=== PATIENT | female | born 1970 | race Caucasian/White ===

== ENCOUNTER 2017-11-16 18:37 | Emergency (ER) | payer BC ==
[2017-11-16] MEDS ORDERED: Adacel (T-DAP) 0.5 ML VIAL ONE ×2 (19:14→19:15)
--- NOTE | 2017-11-16 19:18 | RAD ---
RIGHT HAND THREE VIEWS: 11/16/2017 HISTORY: Injury to right hand. The patient reports right middle finger caught in attic fan. FINDINGS: No acute fracture or dislocation is seen involving the right hand. There is a lucency seen within th e distal pole of the scaphoid bone, which may represent subchondral cystic change. A corticated osse ous density is seen adjacent to the ulnar styloid process, which may be related to either an accessor y center of ossification versus a remote avulsion injury. IMPRESSION: No acute osseous abnormality, right hand. POS: DUONG
[2017-11-16] MEDS ORDERED: Lidocaine 1% PF 5 ML VIAL ONE (19:32)
[2017-11-16] MEDS ORDERED: Ketorolac Tromethamine 30 MG/ML VIAL ONE (19:41)
== END 2017-11-16 20:30 | disposition home or self-care (01) ==
LOC: ERS 18:37
DX: S61.212A Laceration without foreign body of right middle finger without damage to nail, initial encounter (principal); W45.8XXA Other foreign body or object entering through skin, initial encounter
CPT/HCPCS: 12001; 90471; 90715; 96372; J1885; J2001

== ENCOUNTER 2018-12-31 00:01 | Emergency (ER) | payer BC ==
[2018-12-31 00:49] LABS: #Eosinphils 0.1 thou/uL (0.0-0.7); #Lymphocytes 1.4 thou/uL (1.20-3.40); #Monocytes 0.9 thou/uL (0.11-0.59); #Neutrophils 10.2 thou/uL (1.40-6.50); %Basophils 0.2 % (0.0-1.0); %Eosinophils 0.9 % (0.0-10.0); %Monocytes 6.8 % (0.0-10.0); %Neutrophils 81.1 % (42.0-75.0); Hemoglobin 13.2 g/dL (12.0-16.0); Mean Corpuscular HGB CONC 33.6 g/dL (32.0-36.0); Mean Corpuscular Hemoglobin 29.9 pg (27.0-31.0); Mean Corpuscular Volume 89.1 fL (78.0-98.0); Mean Platelet Volume 7.5 fL (7.4-10.4); Platelet Count 329 thou/uL (130-400); RBC Distribution Width 11.3 % (11.5-14.5); Red Blood Cell (RBC) Count 4.42 mill/uL (4.20-5.40); White Blood Cell (WBC) Count 12.5 thou/uL (4.8-10.8)
[2018-12-31] MEDS ORDERED: Ketorolac Tromethamine 30 MG/ML VIAL ONE (00:55)
[2018-12-31] MEDS ORDERED: Ondansetron PF 4 MG/2 ML Vial ONE (00:55)
[2018-12-31 01:30] LABS: Albumin 4.2 g/dL (3.5-5.0)
[2018-12-31 01:31] LABS: Chloride 104 mmol/L (98-107); Sodium 139 mmol/L (136-145)
[2018-12-31 01:32] LABS: Calcium 9.5 mg/dL (7.8-10.44); Glucose 136 mg/dL (70-105)
[2018-12-31 01:33] LABS: Globulin 2.9 g/dL (2.4-3.5); Protein, Total 7.1 g/dL (6.0-8.3)
[2018-12-31 01:34] LABS: Anion Gap 17 mmol/L (10-20); Bilirubin, Total 0.4 mg/dL (0.2-1.2); Carbon Dioxide 22 mmol/L (22-29)
[2018-12-31 01:35] LABS: Alkaline Phosphatase 74 U/L (40-150)
[2018-12-31 01:36] LABS: Calc. Creatinine Clearance 0 mL/min (70-130); Estimated GFR-MDRD 69
[2018-12-31 01:37] LABS: BUN (Urea Nitrogen) 13 mg/dL (7.0-18.7)
[2018-12-31 01:38] LABS: ALT (SGPT) 44 U/L (8-55); AST (SGOT) 39 U/L (5-34)
--- NOTE | 2018-12-31 07:54 | CT ---
PRELIMINARY REPORT/[facility]/EMERGENCY AFTER HOURS PROCEDURE: EXAM: CT Head Without Contrast EXAM DATE/TIME: 12/31/2018 12:53 AM CLINICAL HISTORY: 48 years old, female; Injury or trauma; Initial encounter; Blunt trauma (contusions or hematomas); Giacomo diamond HX: 48 y/o F presents to ED S/P fall. PT, who recently injured her leg from a mechanical fall, states that she is wearing a leg brace that caused her to fall tonight while in her bathroom. On fall , she hit her head on the toilet, which she describes as her last memory. No lightheadedness or dizzi ness prior to fall TECHNIQUE: Imaging protocol: Computed tomography of the head without contrast. COMPARISON: No relevant prior studies available. FINDINGS: Brain: Normal. Ventricles: Normal. Bones/joints: Normal. Sinuses: Normal as visualized. Mastoid air cells: Normal as visualized. Soft tissues: Unremarkable. IMPRESSION: No acute intracranial abnormality. Thank you for allowing us to participate in the care of your patient. Dictated and Authenticated by: Chip Onofre MD 12/31/2018 1:21 AM Central Time ([place] & [place]) FINAL REPORT CT BRAIN WITHOUT CONTRAST: Final report is in agreement with the above-provided preliminary interpretation. No acute intracranial hemorrhage or mass effect.
--- NOTE | 2018-12-31 08:13 | RAD ---
FRONTAL VIEW CHEST: COMPARISON: 09/06/2010. INDICATION: Syncope. FINDINGS: There is no evidence of consolidation, effusion, or pneumothorax. Cardiac silhouette is normal in si ze. IMPRESSION: No focal consolidation. POS: C
== END 2018-12-31 02:23 | disposition home or self-care (01) ==
LOC: ERS 00:01
DX: S01.81XA Laceration without foreign body of other part of head, initial encounter (principal); S70.01XA Contusion of right hip, initial encounter; W18.30XA Fall on same level, unspecified, initial encounter
CPT/HCPCS: 12011; 36415; 70450; 71045; 80053; 83735; 84484; 85025; 93005; 96361; 96374; 96375; J1885; J2405

== ENCOUNTER 2019-01-31 06:51 | Outpatient (CLI) | payer BC ==
[2019-01-31 11:36] LABS: #Basophils 0.1 thou/uL (0.0-0.2); #Eosinphils 0.4 thou/uL (0.0-0.7); #Lymphocytes 2.2 thou/uL (1.20-3.40); #Monocytes 0.9 thou/uL (0.11-0.59); #Neutrophils 8.2 thou/uL (1.40-6.50); %Basophils 0.5 % (0.0-1.0); %Lymphocytes 18.8 % (21.0-51.0); %Monocytes 7.3 % (0.0-10.0); %Neutrophils 70.4 % (42.0-75.0); Hemoglobin 14.1 g/dL (12.0-16.0); Mean Corpuscular Hemoglobin 29.9 pg (27.0-31.0); Mean Corpuscular Volume 88.1 fL (78.0-98.0); Mean Platelet Volume 7.7 fL (7.4-10.4); Platelet Count 308 thou/uL (130-400); RBC Distribution Width 11.4 % (11.5-14.5); Red Blood Cell (RBC) Count 4.73 mill/uL (4.20-5.40); White Blood Cell (WBC) Count 11.7 thou/uL (4.8-10.8)
[2019-01-31 11:44] LABS: Anion Gap 13 mmol/L (10-20); BUN (Urea Nitrogen) 14 mg/dL (7.0-18.7); Calc. Creatinine Clearance 0 mL/min (70-130); Calcium 9.6 mg/dL (7.8-10.44); Carbon Dioxide 25 mmol/L (22-29); Chloride 103 mmol/L (98-107); Estimated GFR-MDRD 77; Glucose 119 mg/dL (70-105); Potassium 4.6 mmol/L (3.5-5.1); Sodium 136 mmol/L (136-145)
--- NOTE | 2019-02-02 19:47 | EKG ---
Test Reason : Blood Pressure : / mmHG Vent. Rate : 078 BPM Atrial Rate : 078 BPM P-R Int : 148 ms QRS Dur : 076 ms QT Int : 372 ms P-R-T Axes : 061 043 064 degrees QTc Int : 424 ms Poor data quality, interpretation may be adversely affected Normal sinus rhythm Normal ECG When compared with ECG of 31-DEC-2018 00:47, No significant change was found Confirmed by MELISSA BALDWIN, . SDayron ([id number]) on 02/02/2019 7:47:01 PM Referred By: IERO Confirmed By:DR. Michelle TORRES MD
== END 2019-01-31 06:52 | disposition home or self-care (01) ==
LOC: LABBT 06:51
PROVIDERS: ATTEND Orthopaedic Surgery
DX: Z01.818 Encounter for other preprocedural examination (principal); S83.511A Sprain of anterior cruciate ligament of right knee, initial encounter
CPT/HCPCS: 80048; 85025; 93005; 93010

== ENCOUNTER 2019-02-02 05:51 | Observation (INO) | payer BC ==
[2019-01-31 10:32] VITALS: BMI 29.7
[2019-02-02] MEDS ORDERED: diphenhydrAMINE 50 MG/ML VIAL ONE ×2 (06:35→11:34)
[2019-02-02] MEDS ORDERED: Scopolamine 1.5 mg/72 hour Patch ONE (06:35)
[2019-02-02] MEDS ORDERED: Midazolam HCl 2 mg/2 ml Vial ONE (06:36)
[2019-02-02] MEDS ORDERED: Fentanyl 100 MCG/2 ML VIAL ONE (06:36)
[2019-02-02] MEDS ORDERED: Ondansetron PF 4 MG/2 ML Vial ONE (06:36)
[2019-02-02] MEDS ORDERED: Zolpidem Tartrate 5 MG TAB PO PRN (07:00)
[2019-02-02] MEDS ORDERED: traMADol HCl 50 MG TAB PO PRN ×2 (07:00)
[2019-02-02] MEDS ORDERED: Promethazine HCl 25 MG/ML VIAL IM PRN ×2 (07:00→09:21)
[2019-02-02] MEDS ORDERED: HYDROcodone/Acetaminophen 10/325 mg Tablet PO PRN ×2 (07:00)
[2019-02-02] MEDS ORDERED: Ropivacaine 0.2% 550 ML 550 ML NERVE BLCK SCH (07:00)
[2019-02-02] MEDS ORDERED: Ondansetron PF 4 MG/2 ML Vial IVP PRN (07:00)
[2019-02-02] MEDS ORDERED: Fentanyl 100 MCG/2 ML VIAL IV PRN (07:01)
[2019-02-02] MEDS ORDERED: Promethazine HCl 25 MG/ML VIAL SLOW IVP PRN (09:21)
[2019-02-02] MEDS ORDERED: Ondansetron HCl/PF 4 MG/2 ML Vial IVP PRN (09:21)
[2019-02-02] MEDS ORDERED: Acetaminophen 500 MG TAB PO PRN (10:28)
[2019-02-02] MEDS ORDERED: Milk Of Magnesia 30 ML UDCUP PO PRN (10:28)
[2019-02-02] MEDS ORDERED: Bisacodyl 10 MG SUPP PR PRN (10:28)
[2019-02-02] MEDS ORDERED: Morphine 4 MG/ML VIAL SLOW IVP PRN (10:28)
[2019-02-02] MEDS ORDERED: HYDROcodone/Acetaminophen 7.5/325 mg Tablet PO PRN ×2 (10:28)
[2019-02-02] MEDS ORDERED: diphenhydrAMINE 50 MG CAP PO PRN (10:28)
[2019-02-02] MEDS ORDERED: Morphine 2 MG/ML SYRINGE SLOW IVP PRN (10:28)
[2019-02-02] MEDS ORDERED: Methocarbamol 500 MG TAB PO PRN (10:28)
[2019-02-02] MEDS ORDERED: Ropivacaine 0.2% HCl/PF (40 MG/20 ML VIAL) ONE (10:43)
[2019-02-02] MEDS ORDERED: Bupivacaine HCl 0.5%/Epinephrine 1:200,000/PF 30 ml Vial ONE (10:43)
[2019-02-02] MEDS ORDERED: Ropivacaine 0.5% HCl/PF (150 MG/30 ML VIAL) ONE (10:43)
[2019-02-02] MEDS ORDERED: Dexamethasone 20 MG/5 ML VIAL ONE (11:34)
[2019-02-02] MEDS ORDERED: PROPOFOL 200 MG/20 ML VIAL ONE (11:34)
[2019-02-02] MEDS ORDERED: Ketorolac Tromethamine 30 MG/ML VIAL ONE (11:34)
[2019-02-02] MEDS ORDERED: Lidocaine 1% PF 5 ML VIAL ONE (11:34)
--- NOTE | 2019-02-02 16:03 | OP ---
DATE OF PROCEDURE: 02/02/2019 PREOPERATIVE DIAGNOSIS: Right knee anterior cruciate ligament tear. POSTOPERATIVE DIAGNOSES: 1. Right knee anterior cruciate ligament tear. 2. Loose body greater than 1 cm, which came from the central facet of the patella. PROCEDURES PERFORMED: 1. Right knee exam under anesthesia. 2. Right knee arthroscopy with arthroscopically-assisted anterior cruciate ligament reconstruction using an allograft Achilles tendon. 3. Removal of loose body greater than 1 cm. AIR CONTROL/ANTI AIR WARFARE OFFICER: Brown Blount PA-C ESTIMATED BLOOD LOSS: Minimal. COMPLICATIONS: None. ANESTHESIA: The patient had a general anesthetic as well as a preoperative block. IMPLANTS: Our implants; 7 x 25 metal interference screw on the femur. We used a 9 x 23 Bio[employer]posite interference screw in the tibial canal, backed up by bicortical screw with a soft tissue washer. All of these devices were [employer] devices. DISPOSITION: She did go to recovery room in stable condition. INDICATIONS: This is a 48-year-old female, who is about a month out from her injury and at this time, she opted for surgical repair. DESCRIPTION OF PROCEDURE: After all appropriate consent forms were explained and signed, she was taken back to the operating room and this time was given a general anesthetic. Once the level of anesthesia was appropriate, an exam under anesthesia was performed of the right lower extremity. Exam under anesthesia was done, which confirmed a positive Jus exam. At this time, she was also noted to have a grade 2 opening of her MCL, but was solid at full extension. We then prepped and draped the right lower extremity in standard surgical fashion. The limb was exsanguinated and the tourniquet was taken up to 300 mmHg. Inferolateral portal was established. Scope was placed into the knee. A needle localization technique was then used to make a medial working portal. Diagnostic arthroscopy commenced in the notch. PCL was found to be intact. The ACL was found to be torn. Remnant ACL was removed at this time. Medial compartment was evaluated. The femur and tibial plateau were in good condition. There was a little flounce noted in the medial meniscus posterior horn. This was probed thoroughly and felt to be intact. We took the camera around the backside of the medial meniscus and did fine hemorrhagic area, where the capsule inserted on the meniscus and upon probing, this was also found to be stable. We then turned our attention to the lateral compartment, lateral meniscus, tibial plateau were in good condition. There was an injury, it appeared to be a grade 2 injury, right in the center part of the lateral femoral condyle. This did not require any treatment. The gutters were swept through and as we went up the medial gutter, there was a loose body noted, which was cartilage surrounded by some fibrinous tissue. This was greater than a centimeter and at this time was removed with a grasper. This emanated off the central portion of the patella. There were some unstable chondral flaps around the periphery and this was gently debrided with mechanical shaver leaving all good cartilage alone. There was another small loose body noted and again this was removed as well. Once this was done, we turned our attention to the reconstruction portion of the procedure. We did flex the knee up and through the medial portal, placed a pin up and out the anterolateral thigh. A 10-mm reamer was used to ream our tunnel depth to a depth of 30. All loose bony cartilage debris was removed from the knee joint. We then used a dilator to dilate this tunnel and compact the bone. At this time, we then turned our attention to the tibial side. The guide was set at 55 degrees and placed into the knee joint. A pin was placed up into the knee joint and again the 10 mm reamer was used to ream our tunnel. A dilator was again used to dilate our tibial tunnel. All loose bony cartilaginous debris was removed from the knee joint. Rasp and naren were used to smooth off the edges. At this time, we went dry. The knee was flexed up and the pin was placed up and out the anterolateral thigh one more time. This was used to pull our passing suture up into the knee joint. This was pulled down the tibial tunnel and used for graft up into the knee joint. A 7 x 25 metal interference screw was then used to fixate our femoral plug. We then went out into full extension and we placed a 9 x 23 Bio[employer]posite interference screw up in the tibial tunnel. We then drilled, tapped and placed a bicortical screw with a smooth washer as backup to fixate the tendon just distal to the tunnel. Once this was done, scope was placed back into the knee to make sure that the interference screw was not visible into the knee joint and indeed it was not. Graft was stable and did not impinge going through full flexion and extension, and at this time, the camera was removed, knee was drained and we then cut off our excess graft. We sewed it into the surrounding periosteum. We then used deep Vicryl, 2-0 Vicryl and we used the sutures to close the incisions. Bulky sterile dressing was applied. Tourniquet was let down. Toes pinked up nicely. The patient was awakened, taken to recovery room in stable condition. All counts were correct at the end of the case. She did receive preoperative IV antibiotics. Job ID: [id number]
[2019-02-02] MEDS: Dextrose 5 %-0.45 % NaCl 1,000 ML IV SCH ×2 (16:18→21:00)
[2019-02-02] MEDS: CEFAZOLIN 2 GM in Premix Bag 1 BAG IVPB SCH ×2 (16:19→23:29)
[2019-02-02] MEDS: Ketorolac Tromethamine 30 MG/ML VIAL IVP SCH ×2 (16:19→18:14)
[2019-02-02] MEDS: Famotidine 20 MG TAB PO SCH (21:06)
[2019-02-03] MEDS: Ketorolac Tromethamine 30 MG/ML VIAL IVP SCH ×3 (01:18→12:02)
[2019-02-03] MEDS: Dextrose 5 %-0.45 % NaCl 1,000 ML IV SCH (06:18)
[2019-02-03] MEDS ORDERED: Sodium Chloride 0.9% 10 ML ONE (06:37)
[2019-02-03] MEDS: Famotidine 20 MG TAB PO SCH (08:50)
--- NOTE | 2019-02-03 10:40 | DIS ---
DATE OF ADMISSION: 02/02/2019 DATE OF DISCHARGE: 02/03/2019 ADMISSION DIAGNOSIS: Right knee anterior cruciate ligament traumatic rupture. DISCHARGE DIAGNOSIS: Right knee anterior cruciate ligament traumatic rupture. PROCEDURE PERFORMED: Arthroscopic-assisted right knee allograft anterior cruciate ligament reconstruction. CONSULTANTS: [facility]. BRIEF CLINICAL HISTORY: Sailaja is a 48-year-old white female, who was admitted to [facility], underwent the above elective procedure on date of admission without intra, trey, or postop complication. Her hospital course was unremarkable. At the time of discharge, the patient was afebrile. She is ambulatory in a nonweightbearing fashion with crutches, tolerating regular diet, voiding without difficulty. Her incision is clean and closed, no strike through and she is neurovascularly intact in the right lower extremity. DISCHARGE MEDICATIONS: Include [place] for pain. We will be happy to see the patient on an as-needed basis between now and the patient's next scheduled appointment in 1 to 2 weeks. CONDITION ON DISCHARGE: Stable. PROGNOSIS: Good. Job ID: [id number]
[2019-02-03 12:32] VITALS: BP 118/58; TEMP 98
== END 2019-02-03 12:46 | disposition home or self-care (01) ==
LOC: SDC 05:51 → 3SE 15:45
PROVIDERS: ADMIT Orthopaedic Surgery; ATTEND Orthopaedic Surgery
PROC: 0MSN4ZZ Reposition Right Knee Bursa and Ligament, Percutaneous Endoscopic Approach (ICD-10-PCS; principal; 2019-02-02)
PROC: 3E0T3BZ Introduction of Anesthetic Agent into Peripheral Nerves and Plexi, Percutaneous Approach (ICD-10-PCS; 2019-02-03)
PROC: 3E0T3BZ Introduction of Anesthetic Agent into Peripheral Nerves and Plexi, Percutaneous Approach (ICD-10-PCS; 2019-02-03)
DX: S83.511A Sprain of anterior cruciate ligament of right knee, initial encounter (principal); J30.2 Other seasonal allergic rhinitis; G89.18 Other acute postprocedural pain; W01.0XXA Fall on same level from slipping, tripping and stumbling without subsequent striking against object, initial encounter; Y92.71 Barn as the place of occurrence of the external cause
CPT/HCPCS: 96372; 96374; 96375; 96376; A4306; C1713; G0378; J0670; J0690; J1100; J1200; J1885; J2001; J2250; J2405; J2550; J2704; J2795; J3010; J3370; Q0163

== ENCOUNTER 2021-06-05 10:19 | Day surgery (SDC) | payer BC ==
[2021-06-04 10:48] VITALS: BMI 28.1
[2021-06-05] MEDS ORDERED: Fentanyl 100 MCG/2 ML VIAL ONE ×2 (11:09→12:22)
[2021-06-05] MEDS ORDERED: Midazolam HCl 2 mg/2 ml Vial ONE (11:09)
[2021-06-05] MEDS ORDERED: ceFAZolin 2 GM/Dextrose 50 ML IVPB ONE (12:18)
[2021-06-05] MEDS ORDERED: Ondansetron PF 4 MG/2 ML Vial IVP PRN (12:30)
[2021-06-05] MEDS ORDERED: HYDROcodone/Acetaminophen 5/325 mg Tablet PO PRN ×2 (12:30)
[2021-06-05] MEDS ORDERED: Zolpidem Tartrate 5 MG TAB PO PRN (12:30)
[2021-06-05] MEDS ORDERED: Ropivacaine 0.2% 550 ML 550 ML NERVE BLCK SCH (12:30)
[2021-06-05] MEDS ORDERED: Ketorolac Tromethamine 30 MG/ML VIAL IVP PRN (12:30)
[2021-06-05] MEDS ORDERED: Promethazine HCl 25 MG/ML VIAL IM PRN (12:30)
[2021-06-05] MEDS ORDERED: traMADol HCl 50 MG TAB PO PRN ×2 (12:30)
[2021-06-05] MEDS ORDERED: PROPOFOL 200 MG/20 ML VIAL ONE (12:53)
[2021-06-05] MEDS ORDERED: Ketorolac Tromethamine 30 MG/ML VIAL ONE (12:53)
[2021-06-05] MEDS ORDERED: Dexamethasone 20 MG/5 ML VIAL ONE (12:53)
[2021-06-05] MEDS ORDERED: Lidocaine 1% PF 5 ML VIAL ONE (12:53)
[2021-06-05] MEDS ORDERED: Ondansetron PF 4 MG/2 ML Vial ONE (12:53)
[2021-06-05] MEDS ORDERED: Ropivacaine 0.5% HCl/PF (150 MG/30 ML VIAL) ONE (12:53)
[2021-06-05] MEDS ORDERED: ePHEDrine 50 MG/ML VIAL ONE (12:53)
== END 2021-06-05 16:35 | disposition home or self-care (01) ==
LOC: SDC 10:19
PROVIDERS: ATTEND Orthopaedic Surgery
PROC: 0PSJ04Z Reposition Left Radius with Internal Fixation Device, Open Approach (ICD-10-PCS; principal; 2021-06-05)
PROC: 0PSL04Z Reposition Left Ulna with Internal Fixation Device, Open Approach (ICD-10-PCS; principal; 2021-06-05)
PROC: 3E0T3BZ Introduction of Anesthetic Agent into Peripheral Nerves and Plexi, Percutaneous Approach (ICD-10-PCS; principal; 2021-06-05)
DX: S52.302A Unspecified fracture of shaft of left radius, initial encounter for closed fracture (principal); S52.202A Unspecified fracture of shaft of left ulna, initial encounter for closed fracture; J30.2 Other seasonal allergic rhinitis; Z79.82 Long term (current) use of aspirin; Z79.891 Long term (current) use of opiate analgesic; W00.0XXA Fall on same level due to ice and snow, initial encounter
CPT/HCPCS: 76000; A4306; C1713; C1874; J0690; J1100; J1885; J2250; J2405; J2704; J2795; J3010; J3490

== ENCOUNTER 2021-12-24 13:45 | Outpatient (CLI) | payer BC | END 2021-12-24 13:46 | disposition home or self-care (01) | LOC: MRI 13:45 | PROVIDERS: ATTEND Anesthesiology | DX: M79.602 Pain in left arm (principal); G56.42 Causalgia of left upper limb; M47.812 Spondylosis without myelopathy or radiculopathy, cervical region | CPT/HCPCS: 72141 ==

== ENCOUNTER 2022-12-08 20:36 | Emergency (ER) | payer BC, SELFPAY ==
[2022-12-08] MEDS ORDERED: Ketorolac Tromethamine 30 MG/ML VIAL ONE (21:04)
== END 2022-12-08 22:31 | disposition home or self-care (01) ==
LOC: ERS 20:36
DX: S82.001A Unspecified fracture of right patella, initial encounter for closed fracture (principal); W18.30XA Fall on same level, unspecified, initial encounter
CPT/HCPCS: 96372; J1885

== ENCOUNTER 2023-02-12 14:11 | Outpatient (CLI) | payer OTHER | END 2023-02-12 14:12 | disposition home or self-care (01) | LOC: BICCT 14:11 | PROVIDERS: ATTEND Orthopaedic Surgery Hand Surgery | DX: S62.115A Nondisplaced fracture of triquetrum [cuneiform] bone, left wrist, initial encounter for closed fracture (principal); S62.002A Unspecified fracture of navicular [scaphoid] bone of left wrist, initial encounter for closed fracture ==